=== PATIENT | female | born 1960 | race Two or more races ===

== ENCOUNTER → 2018-03-04 | Outpatient (CLI) | payer OTHER ==
[~2018-03-04] MED LIST: CEPHALEXIN500 M1 PO; KETO10TA2 PO; TOBRADEX EYE DR10 ML OP
== END | disposition home or self-care (01) ==
LOC: TOM 08:45
DX: N39.0 Urinary tract infection, site not specified (principal); R31.0 Gross hematuria

== ENCOUNTER 2019-02-25 16:17 | Emergency (ER) | payer OTHER ==
[~2019-02-25] VITALS: Ht 162.6 cm; Wt 50.3 kg
== END 2019-02-25 17:44 | disposition home or self-care (01) ==
LOC: ER 16:17
DX: R06.02 Shortness of breath (principal)

== ENCOUNTER 2019-03-02 11:13 | Outpatient (CLI) | payer OTHER | END 2019-03-02 13:14 | disposition home or self-care (01) | LOC: TOM 11:13 | DX: R06.02 Shortness of breath (principal); J45.30 Mild persistent asthma, uncomplicated ==

== ENCOUNTER 2019-04-06 14:13 | Outpatient (CLI) | payer OTHER ==
[~2019-04-06] VITALS: Ht 162.6 cm; Wt 50.3 kg
== END 2019-04-06 14:30 | disposition home or self-care (01) ==
LOC: OFIC 805 14:13
DX: J34.89 Other specified disorders of nose and nasal sinuses (principal); M95.0 Acquired deformity of nose; J30.89 Other allergic rhinitis; J39.8 Other specified diseases of upper respiratory tract

== ENCOUNTER 2019-04-21 08:33 | Outpatient (CLI) | payer OTHER ==
[~2019-04-21] VITALS: Ht 152.4 cm; Wt 50.3 kg
== END 2019-04-21 08:45 | disposition home or self-care (01) ==
LOC: OFIC 805 08:33
DX: J34.89 Other specified disorders of nose and nasal sinuses (principal); J30.89 Other allergic rhinitis; M95.0 Acquired deformity of nose

== ENCOUNTER 2019-05-29 14:07 | Outpatient (CLI) | payer OTHER | END 2019-05-29 14:11 | disposition home or self-care (01) | LOC: TOM 14:07 | DX: J32.8 Other chronic sinusitis (principal); J34.2 Deviated nasal septum ==

== ENCOUNTER 2019-07-01 10:13 | Outpatient (CLI) | payer OTHER ==
[~2019-07-01] VITALS: Ht 152.4 cm; Wt 50.3 kg
== END 2019-07-01 13:50 | disposition home or self-care (01) ==
LOC: OFIC 805 10:13
DX: J30.89 Other allergic rhinitis (principal)

== ENCOUNTER 2019-08-21 17:59 | Emergency (ER) | payer OTHER ==
[~2019-08-21] VITALS: Ht 162.6 cm; Wt 50.8 kg
[2019-08-21] MEDS ORDERED: ANORO ELLIPTA1 EACH (18:10)
== END 2019-08-21 21:18 | disposition home or self-care (01) ==
LOC: ER 17:59
DX: S01.82XA Laceration with foreign body of other part of head, initial encounter (principal); W45.8XXA Other foreign body or object entering through skin, initial encounter; Y93.89 Activity, other specified; Y92.89 Other specified places as the place of occurrence of the external cause; Y99.8 Other external cause status

== ENCOUNTER 2020-05-18 08:32 | Outpatient (CLI) | payer OTHER ==
[~2020-05-18] VITALS: Ht 162.6 cm; Wt 50.8 kg
[~2020-05-18 08:32] MED LIST changes: +ANORO ELLIPTA1 EACH
[2020-05-18] MEDS ORDERED: SYMBICORT 80/10.2 GM (11:14)
[2020-05-18] MEDS ORDERED: DYMISTA NASAL S23 GM (11:14)
== END 2020-05-18 09:20 | disposition home or self-care (01) ==
LOC: OFIC 805 08:32
PROVIDERS: ATTEND Otolaryngology Otology & Neurotology
DX: J04.0 Acute laryngitis (principal); J39.2 Other diseases of pharynx

== ENCOUNTER → 2020-10-05 | Outpatient (CLI) | payer OTHER ==
[~2020-10-05] MED LIST changes: +DYMISTA NASAL S23 GM; +SYMBICORT 80/10.2 GM
== END | disposition home or self-care (01) ==
LOC: OFIC 805 08:30
PROVIDERS: ATTEND Otolaryngology Otology & Neurotology
DX: J30.89 Other allergic rhinitis (principal); J34.89 Other specified disorders of nose and nasal sinuses; J39.2 Other diseases of pharynx; K21.9 Gastro-esophageal reflux disease without esophagitis; B37.89 Other sites of candidiasis

== ENCOUNTER 2020-11-28 13:39 | Outpatient (CLI) | payer OTHER | END 2020-11-28 14:33 | disposition home or self-care (01) | LOC: OFIC 805 13:39 | PROVIDERS: ATTEND Otolaryngology Otology & Neurotology | DX: K21.00 Gastro-esophageal reflux disease with esophagitis, without bleeding (principal); B37.89 Other sites of candidiasis; J39.2 Other diseases of pharynx ==

== ENCOUNTER 2021-01-01 05:05 | Emergency (ER) | payer OTHER ==
[~2021-01-01] VITALS: Ht 162.6 cm; Wt 52.2 kg
[2021-01-01] MEDS ORDERED: PEPCID AC20 MG (05:14)
[2021-01-01] MEDS ORDERED: SINGULAIR4 MG (05:14)
[2021-01-01] MEDS ORDERED: PROTONIX40 MG (05:15)
[2021-01-01] MEDS ORDERED: NITROFURANTOIN100 MG PO (06:02)
== END 2021-01-01 06:15 | disposition home or self-care (01) ==
LOC: ER 05:05
DX: N39.0 Urinary tract infection, site not specified (principal)

== ENCOUNTER 2021-02-21 14:21 | Outpatient (CLI) | payer OTHER ==
[~2021-02-21 14:21] MED LIST changes: +NITROFURANTOIN100 MG PO; +PEPCID AC20 MG; +PROTONIX40 MG; +SINGULAIR4 MG
== END 2021-02-21 15:36 | disposition home or self-care (01) ==
LOC: OFIC 805 14:21
PROVIDERS: ATTEND Otolaryngology Otology & Neurotology
DX: K21.9 Gastro-esophageal reflux disease without esophagitis (principal); J39.2 Other diseases of pharynx; J02.8 Acute pharyngitis due to other specified organisms; J30.89 Other allergic rhinitis

== ENCOUNTER 2021-07-14 18:59 | Emergency (ER) | payer OTHER ==
[~2021-07-14] VITALS: Ht 152.4 cm; Wt 65.8 kg
[2021-07-14] MEDS ORDERED: DYMISTA NASAL S23 GM (19:23)
[2021-07-14] MEDS ORDERED: SPIRIVA RESPIMAT4 G1 (19:23)
== END 2021-07-14 21:19 | disposition home or self-care (01) ==
LOC: ER 18:59
DX: N39.0 Urinary tract infection, site not specified (principal)

== ENCOUNTER 2021-08-16 13:38 | Outpatient (CLI) | payer OTHER ==
[~2021-08-16 13:38] MED LIST changes: +SPIRIVA RESPIMAT4 G1
== END 2021-08-16 13:55 | disposition home or self-care (01) ==
LOC: MAMO-SONO 13:38
PROVIDERS: ATTEND Obstetrics & Gynecology Gynecology
DX: N60.19 Diffuse cystic mastopathy of unspecified breast (principal); N63.0 Unspecified lump in unspecified breast; R92.2 Inconclusive mammogram; N64.4 Mastodynia

== ENCOUNTER 2021-08-18 14:00 | Outpatient (CLI) | payer OTHER | END 2021-08-18 14:06 | disposition home or self-care (01) | LOC: NUCLEAR 14:00 | PROVIDERS: ATTEND Obstetrics & Gynecology Gynecology | DX: M81.0 Age-related osteoporosis without current pathological fracture (principal); M85.80 Other specified disorders of bone density and structure, unspecified site ==

== ENCOUNTER 2022-01-19 14:46 | Emergency (ER) | payer OTHER ==
[~2022-01-19] VITALS: Ht 162.6 cm; Wt 52.2 kg
== END 2022-01-19 15:49 | disposition home or self-care (01) ==
LOC: ER 14:46
DX: S00.93XA Contusion of unspecified part of head, initial encounter (principal); S30.0XXA Contusion of lower back and pelvis, initial encounter; S50.02XA Contusion of left elbow, initial encounter; W19.XXXA Unspecified fall, initial encounter; Y93.9 Activity, unspecified; Y92.9 Unspecified place or not applicable; Y99.9 Unspecified external cause status

== ENCOUNTER 2022-04-30 09:17 | Outpatient (CLI) | payer OTHER | END 2022-04-30 09:25 | disposition home or self-care (01) | LOC: RAD 09:17 | PROVIDERS: ATTEND Specialist | DX: M51.35 Other intervertebral disc degeneration, thoracolumbar region (principal); M81.0 Age-related osteoporosis without current pathological fracture ==

== ENCOUNTER 2022-11-21 09:59 | Outpatient (CLI) | payer OTHER | END 2022-11-21 10:33 | disposition home or self-care (01) | LOC: MAMO-SONO 09:59 | PROVIDERS: ATTEND Obstetrics & Gynecology Gynecology | DX: Z12.31 Encounter for screening mammogram for malignant neoplasm of breast (principal); N60.19 Diffuse cystic mastopathy of unspecified breast; N64.4 Mastodynia; R92.2 Inconclusive mammogram; N63.0 Unspecified lump in unspecified breast ==

== ENCOUNTER 2023-05-02 08:18 | Emergency (ER) | payer OTHER ==
[~2023-05-02] VITALS: Ht 162.6 cm; Wt 51.3 kg
[2023-05-02] MEDS ORDERED: STIOLTO RESPIMAT4 GM IH (08:44)
[2023-05-02] MEDS ORDERED: FLONASE ALLERG9.9 ML NASAL (12:00)
[2023-05-02] MEDS ORDERED: TUSNEL LIQUID178 ML PO (12:00)
== END 2023-05-02 12:04 | disposition home or self-care (01) ==
LOC: ER 08:18
DX: J02.9 Acute pharyngitis, unspecified (principal); R09.81 Nasal congestion; Z20.822 Contact with and (suspected) exposure to COVID-19

== ENCOUNTER 2023-06-22 15:31 | Emergency (ER) | payer OTHER ==
[~2023-06-22] VITALS: Ht 162.6 cm; Wt 51.3 kg
[~2023-06-22 15:31] MED LIST changes: +FLONASE ALLERG9.9 ML NASAL; +STIOLTO RESPIMAT4 GM IH; +TUSNEL LIQUID178 ML PO
== END 2023-06-22 17:32 | disposition home or self-care (01) ==
LOC: ER 15:31
DX: J06.9 Acute upper respiratory infection, unspecified (principal)

== ENCOUNTER 2023-08-26 13:29 | Outpatient (CLI) | payer OTHER | END 2023-08-26 13:30 | disposition home or self-care (01) | LOC: NUCLEAR 13:29 | PROVIDERS: ATTEND Specialist | DX: M81.0 Age-related osteoporosis without current pathological fracture (principal) ==

== ENCOUNTER 2023-11-27 14:45 | Outpatient (CLI) | payer OTHER | END 2023-11-27 14:54 | disposition home or self-care (01) | LOC: MAMO-SONO 14:45 | DX: N64.4 Mastodynia (principal); N60.19 Diffuse cystic mastopathy of unspecified breast; Z12.31 Encounter for screening mammogram for malignant neoplasm of breast; R92.2 Inconclusive mammogram; N63.0 Unspecified lump in unspecified breast ==

== ENCOUNTER 2024-09-15 10:36 | Outpatient (CLI) | payer OTHER | END 2024-09-15 10:37 | disposition home or self-care (01) | LOC: NUCLEAR 10:36 | PROVIDERS: ATTEND Specialist | DX: M81.0 Age-related osteoporosis without current pathological fracture (principal) ==

== ENCOUNTER 2025-03-30 12:41 | Outpatient (CLI) | payer OTHER | END 2025-03-30 12:48 | disposition home or self-care (01) | LOC: MAMO-SONO 12:41 | PROVIDERS: ATTEND Obstetrics & Gynecology Gynecology | DX: N60.19 Diffuse cystic mastopathy of unspecified breast (principal); Z12.31 Encounter for screening mammogram for malignant neoplasm of breast; N64.4 Mastodynia; R92.2 Inconclusive mammogram; N63.0 Unspecified lump in unspecified breast ==

== ENCOUNTER → 2025-05-25 | Emergency (ER) | payer OTHER ==
[~2025-05-25] VITALS: Ht 162.6 cm; Wt 50.8 kg
[~2025-05-25] MED LIST changes: +DEXAMETHASONE SODIUM PHOSPHATE 4 MG/ML VIAL IM ONE; +DEXAMETHASONE SODIUM PHOSPHATE 4 MG/ML VIAL ONE; +DICLOFENAC SODI75 MG PO; +KETOROLAC TROMETHAMINE 60 MG VIAL IM ONE; +ORPHENADRINE CITRATE 30 MG/ML AMPUL IM ONE; +ORPHENADRINE CITRATE 30 MG/ML AMPUL ONE
== END | disposition home or self-care (01) ==
LOC: ER 10:41
DX: M54.2 Cervicalgia (principal); M54.89 Other dorsalgia

== ENCOUNTER 2025-06-07 16:02 | Outpatient (CLI) | payer OTHER ==
[~2025-06-07 16:02] MED LIST changes: -DEXAMETHASONE SODIUM PHOSPHATE 4 MG/ML VIAL IM ONE; -DEXAMETHASONE SODIUM PHOSPHATE 4 MG/ML VIAL ONE; -KETOROLAC TROMETHAMINE 60 MG VIAL IM ONE; -ORPHENADRINE CITRATE 30 MG/ML AMPUL IM ONE; -ORPHENADRINE CITRATE 30 MG/ML AMPUL ONE
== END 2025-06-07 16:11 | disposition home or self-care (01) ==
LOC: RAD 16:02
PROVIDERS: ATTEND Physical Medicine & Rehabilitation Hospice and Palliative Medicine
DX: M62.830 Muscle spasm of back (principal)